=== PATIENT | female | born 1985 | race Caucasian/White ===

== ENCOUNTER 2019-10-16 06:19 | Day surgery (SDC) | payer BC ==
[2019-10-16] VITALS (7 sets, daily range): BP systolic 91–115; BP diastolic 44–65; PULSE 74–84; TEMP 98.3
[~2019-10-16 06:19] MED LIST: BIRTH CONTROL IMPLAN; EC NAPROSYN500 MG PO; EPI EZ PEN1 MG/ML IM; LORTAB 5/500 501 TAB PO; NAPROSYN500 MG PO; NO HOME MEDICATIONS; PROVENTIL0.09 MG/A1 IH
--- NOTE | 2019-10-16 08:00 | NUR ---
Patient resting in bed at this time, sister at bedside. Patient rouses with some effort, is alert and oriented while awake. IV placed in her right AC in one attempt. Patient denies needs at this time, call light within reach.
--- NOTE | 2019-10-16 11:09 | NUR ---
Plan: To return home with her three children. Patient reports her sister Wilma Linares [phone] as care support and her EMR. Patient reports that she does not have a DPOA and declined one at this time. She resides in [facility]. Assess: SW met with patient with "Carley" at her bedside. Patient did give permission to discuss information in front of Friend. Patient indicated being independent before current hospital presentation, and denied the use of any DME. Patient reports that her PCP is Dr. Rose with no upcoming appointments. Patient reports that she gets her medications from [facility] with no concerns. Patient denies having any home health needs at this time. Action: NO additional concerns identified. Patient was educated on community resources and supports.
--- NOTE | 2019-10-16 16:15 | NUR ---
Discharge teaching completed. Discussed importance of making and keeping follow up appointment. Discussed discharge instructions, discharge medications, work note, and patient education. Patient verbalized understanding. IV removed, catheter intact, hemostasis achieved. Patient gathered all personal belongings and was escorted out via wheelchair to ED entrance, where she entered a private vehicle.
== END 2019-10-16 16:00 | disposition home or self-care (01) ==
LOC: COL.AMSURD 06:19 → JCC 06:19 → COL.AMSURD 16:00
PROVIDERS: Urology
DX: N20.1 Calculus of ureter (principal); J45.909 Unspecified asthma, uncomplicated; F17.210 Nicotine dependence, cigarettes, uncomplicated; Z85.3 Personal history of malignant neoplasm of breast; Z85.41 Personal history of malignant neoplasm of cervix uteri; Z79.899 Other long term (current) drug therapy; Z88.5 Allergy status to narcotic agent; Z88.0 Allergy status to penicillin; Z88.2 Allergy status to sulfonamides; Z88.1 Allergy status to other antibiotic agents; Z91.040 Latex allergy status; Z80.6 Family history of leukemia
CPT/HCPCS: OP; C1769; C2617; G0378; J0690; J1100; J1170; J1885; J1940; J2405; J2704; J7030; Q9967